=== PATIENT | male | born 1960 | race American Indian/Alaskan Native ===

== ENCOUNTER 2019-05-24 12:16 | Outpatient (CLI) | payer OTHER ==
[2019-05-24 12:44] LABS: Hematocrit 44.8 % (35.5-45.6); Hemoglobin 14.9 gm/dl (11.8-15.2); Mean Corpuscular HGB Conc 33 % (32-34); Mean Corpuscular Volume 85 fl (84-94); Platelet Count 229 K/mm3 (140-440); Red Blood Count 5.27 M/mm3 (3.65-5.03); Red Cell Distribution Width 14.8 % (13.2-15.2)
[2019-05-24 13:23] LABS: Alanine Aminotransferase 41 units/L (7-56); Albumin 4.3 g/dL (3.9-5); BUN/Creatinine Ratio 15; Blood Urea Nitrogen 16 mg/dL (9-20); Calcium 9.5 mg/dL (8.4-10.2); Chol/HDL Ratio 3.77 %; HDL Cholesterol 53 mg/dL (40-59); Hemolysis Index 2; LDL Cholesterol,Direct 136 mg/dL (50-130)
--- NOTE | 2019-05-24 13:37 | XRay Report ---
CHEST 2 VIEWS INDICATION: G47.9Sleep disorder, unspecified/Z68.38Body mass index (BMI) 38.0. COMPARISON: None. FINDINGS: Support devices: None. Heart: Within normal limits. Pulmonary vasculature: Normal. Lungs/pleura: The lungs are normally expanded and clear. No pneumothorax. 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 IMPRESSION: 1. No acute findings. Signer Name: Clarence You MD Signed: 05/24/2019 1:33 PM Workstation Name: [id number]
== END 2019-05-24 12:17 | disposition home or self-care (01) ==
LOC: XRAY 12:16
PROVIDERS: ATTEND Internal Medicine
DX: E11.9 Type 2 diabetes mellitus without complications (principal); Z68.38 Body mass index [BMI] 38.0-38.9, adult; G47.9 Sleep disorder, unspecified; M25.78 Osteophyte, vertebrae
CPT/HCPCS: 36415; 71046; 80053; 80061; 84436; 84443; 85027; 93005; 93010